=== PATIENT | male | born 1955 | race African-American/Black ===

== ENCOUNTER 2017-02-20 13:52 | Emergency (ER) | payer OTHER ==
[~2017-02-20] VITALS: Ht 180.3 cm; Wt 98.4 kg
[2017-02-20 14:15] VITALS: BP 168/94
[2017-02-20] MEDS ORDERED: HYDROmorphone 1 MG/ML AMP IVP ONE (15:20)
[2017-02-20 15:56] LABS: BASOPHILS # (AUTO) 0.3 K/uL (0.00-0.22); BASOPHILS % (AUTO) 4.5 % (0.0-2.0); EOSINOPHILS # (AUTO) 0.2 K/uL (0-0.4); EOSINOPHILS % (AUTO) 3.3 % (0.0-4.0); HEMATOCRIT 41.3 % (36-52); HEMOGLOBIN 13.5 g/dL (12.0-18.0); LYMPHOCYTES # (AUTO) 2.9 K/uL (2.0-11.5); LYMPHOCYTES % (AUTO) 39.9 % (20.5-51.1); MEAN CORPUSCULAR HEMOGLOBIN 30 pg (27-31); MEAN CORPUSCULAR HGB CONC 33 g/dL (33-37); MEAN CORPUSCULAR VOLUME 92 fL (80-94); MONOCYTES # (AUTO) 0.9 K/uL (0.8-1.0); MONOCYTES % (AUTO) 11.7 % (1.7-9.3); NEUTROPHILS # (AUTO) 3.1 K/uL (1.8-7.7); NEUTROPHILS % (AUTO) 40.6 % (42.2-75.2); PLATELET COUNT (AUTO) 268 K/uL (140-450); RED BLOOD CELL COUNT(AUTO) 4.51 MIL/uL (4.20-6.10); RED CELL DISTRIBUTION WIDTH 13.5 % (11.6-13.7); WHITE BLOOD COUNT (AUTO) 7.4 K/uL (4.8-10.8)
[2017-02-20 16:14] LABS: ALBUMIN 3.6 g/dL (3.4-5.0); ANION GAP 14.1 (8-16); CARBON DIOXIDE 25.5 mmol/L (21-32); CREATININE 1.1 mg/dL (0.7-1.3); POTASSIUM 3.6 mmol/L (3.5-5.1); TOTAL BILIRUBIN 0.4 mg/dL (0.0-1.0)
[2017-02-20] MEDS ORDERED: ONDANSETRON 4 MG/2 ML VIAL IVP ONE (16:25)
[2017-02-20 17:45] VITALS: BP 164/94
== END 2017-02-20 17:45 | disposition home or self-care (01) ==
LOC: MED 13:52
DX: K59.00 Constipation, unspecified (principal); R20.8 Other disturbances of skin sensation; E10.9 Type 1 diabetes mellitus without complications; I10 Essential (primary) hypertension
CPT/HCPCS: 36415; 74176; 80053; 82150; 83615; 83690; 85025; 96374; 96375; 99285; J1170; J2405

== ENCOUNTER 2019-09-18 09:09 | Emergency (ER) | payer OTHER ==
[~2019-09-18] VITALS: Ht 180.3 cm; Wt 98.4 kg
[2019-09-18 09:19] VITALS: BP 180/92
--- NOTE | 2019-09-18 09:20 | NUR ---
Patient ambulated to bed 7. RN evaluating the patient at bedside.
--- NOTE | 2019-09-18 09:25 | NUR ---
C/O L LEG PAIN X 7 DAYS, L EAR RINGING X2 WEEKS, AND REPETITVE L EYE BLINKING X YESTERDAY. +CMS TO L LEG. PT REPORTS NO VISION LOSS. DENIES CP, SOB, OR N/V/D. PT STATES HE IS TAKING EAR DROPS FOR HIS EAR RINGING, PRESCRIBED BY HIS PCP. PT REPORTS UNCONTROLLED DM, CURRENTLY NOT TAKING MEDICATIONS FOR DM. PT AMB WITH CANE. PT ALERT AND AWAKE, ORIENTED. TACHY AT 106. HR 180/92. PMH- HTN, DM RX- EAR DROPS, NAPROXEN, CYCLOBENZAPRINE
--- NOTE | 2019-09-18 09:29 | NUR ---
Dr. Martinez is evaluating the patient at bedside.
[2019-09-18] MEDS ORDERED: NACL 0.9% 1,000 ML IV ONE (09:35)
--- NOTE | 2019-09-18 09:35 | NUR ---
BS TOO HIGH TO READ, DR STEIN NOTIFIED
--- NOTE | 2019-09-18 09:48 | NUR ---
IV INSERTED BY ZABRINA CLARK, LABS DRAWN BEDSIDE, OPEN BOLUS RUNNING
--- NOTE | 2019-09-18 09:49 | NUR ---
US AT BEDSIDE
[2019-09-18 09:59] LABS: BASOPHILS # (AUTO) 0.1 K/uL (0.00-0.22); BASOPHILS % (AUTO) 1.2 % (0.0-2.0); EOSINOPHILS # (AUTO) 0.3 K/uL (0-0.4); EOSINOPHILS % (AUTO) 4.4 % (0.0-4.0); HEMATOCRIT 44.8 % (36-52); HEMOGLOBIN 14.8 g/dL (12.0-18.0); LYMPHOCYTES # (AUTO) 2.4 K/uL (2.0-11.5); LYMPHOCYTES % (AUTO) 31.5 % (20.5-51.1); MEAN CORPUSCULAR HEMOGLOBIN 30 pg (27-31); MEAN CORPUSCULAR HGB CONC 33 g/dL (33-37); MEAN CORPUSCULAR VOLUME 89.5 fL (80-94); MONOCYTES # (AUTO) 0.3 K/uL (0.8-1.0); MONOCYTES % (AUTO) 4.3 % (1.7-9.3); NEUTROPHILS # (AUTO) 4.4 K/uL (1.8-7.7); NEUTROPHILS % (AUTO) 58.6 % (42.2-75.2); PLATELET COUNT (AUTO) 238 K/uL (140-450); RED CELL DISTRIBUTION WIDTH 13.4 % (11.6-13.7); WHITE BLOOD COUNT (AUTO) 7.6 K/uL (4.8-10.8)
[2019-09-18 10:23] LABS: ANION GAP 16.8 (8-16); ASPARTATE AMINOTRANSFERASE 18 U/L (15-37); CARBON DIOXIDE 23.4 mmol/L (21-32); CHLORIDE 96 mmol/L (98-107); CREATININE 1.5 mg/dL (0.6-1.3); GFR ARICAN-AMERICAN 61 mL/min (>90); POTASSIUM 4.2 mmol/L (3.5-5.1); SODIUM SERUM 132 mmol/L (136-145); TOTAL BILIRUBIN 0.3 mg/dL (0.0-1.0); UREA NITROGEN, BLOOD 12 mg/dL (7-18)
--- NOTE | 2019-09-18 10:25 | NUR ---
BS 606, REPORTED BY LAB, DR STEIN NOTIFIED
--- NOTE | 2019-09-18 10:26 | NUR ---
IRRIGATION WITH NORMAL SALINE TO L EAR COMPLETED BY TRAY TORRES
[2019-09-18 10:27] LABS: GLUCOSE 606 mg/dL (74-106)
[2019-09-18 10:31] LABS: ACETONE, SERUM SMALL (NEGATIVE)
[2019-09-18] MEDS ORDERED: INSULIN REGULAR, HUMAN 100 UNIT/ML VIAL IVP ONE (10:35)
--- NOTE | 2019-09-18 10:48 | NUR ---
HUMILIN R ADMINISTERED IVP
--- NOTE | 2019-09-18 10:49 | NUR ---
PT STATES UNABLE TO USE RESTROOM, PT GIVEN CUP OF WATER
--- NOTE | 2019-09-18 11:02 | NUR ---
BS 408
--- NOTE | 2019-09-18 11:13 | NUR ---
PT AMB WITH CANE TO RESTROOM
--- NOTE | 2019-09-18 11:23 | NUR ---
URINE WALKED TO LAB
[2019-09-18 11:27] LABS: APPEARANCE,URINE CLEAR (CLEAR); BILIRUBIN,URINE NEGATIVE (NEGATIVE); BLOOD, URINE 1+ (NEGATIVE); COLOR,URINE RED (YELLOW); LEUKOCYTE ESTERASE ,URINE NEGATIVE (NEGATIVE); NITRITE, URINE NEGATIVE (NEGATIVE); PH,URINE 5.5 (5.0-9.0); UGLUCOSE 3+ (NEGATIVE)
[2019-09-18 11:54] LABS: WBC,URINE 0-5 /HPF (0-5)
[2019-09-18] MEDS ORDERED: KETOROLAC 15 MG/ML VIAL IVP ONE (11:55)
--- NOTE | 2019-09-18 11:55 | NUR ---
PT STATES PAIN 02/[address] STEIN NOTIFIED
--- NOTE | 2019-09-18 11:55 | NUR ---
ACCU CHECK 245
--- NOTE | 2019-09-18 12:06 | NUR ---
TORADOL IVP ADMINISTERED FOR 02/07 PAIN
--- NOTE | 2019-09-18 12:24 | NUR ---
ADELA, PAIN 11/07, PT NOTIFIED THAT HE WILL BE SENT HOME WITH A PRESCRIPTION FOR PAIN
[2019-09-18 12:26] VITALS: BP 152/84
--- NOTE | 2019-09-18 12:26 | NUR ---
Patient discharged with v/s stable. Written and verbal after care instructions given and explained. Patient alert, oriented and verbalized understanding of instructions. Ambulatory with steady gait. All questions addressed prior to discharge. ID band removed. Patient advised to follow up with PMD. Rx of METFORMIN, IBUPROFEN, NORCO, DEBROX EAR DROPS given. Patient educated on indication of medication including possible reaction and side effects. Opportunity to ask questions provided and answered. PTS BS CONTROLLED AT THIS TIME. PT NO LONGER HYPERTENSIVE. PT INSTRUCTED TO NOT DRIVE AFTER TAKING NORCO IT MAY CAUSE DROWSINESS.
== END 2019-09-18 12:26 | disposition home or self-care (01) ==
LOC: MED 09:09
DX: H92.02 Otalgia, left ear (principal); M79.605 Pain in left leg; E10.9 Type 1 diabetes mellitus without complications; I10 Essential (primary) hypertension
CPT/HCPCS: 36415; 80053; 81001; 82009; 82803; 82948; 85025; 93971; 96374; 96375; 99284; J1815; J1885; J7030; Q0092

== ENCOUNTER 2019-09-20 14:51 | Emergency (ER) | payer OTHER ==
[~2019-09-20] VITALS: Ht 180.3 cm; Wt 100.7 kg
[2019-09-20 14:56] VITALS: BP 165/107
--- NOTE | 2019-09-20 15:22 | NUR ---
Dr. Braun is evaluating the patient at bedside.
--- NOTE | 2019-09-20 15:30 | NUR ---
C/O L EYE TWITCHING AND SLURRED SPEECH STARTING THIS MORNING. PT STATES HE THINKS HE IS HAVING A REACTION TO HIS NEW MEDICATION, METFORMIN. PT IS A&O X4, BUE/BLE STRENGTH EQUAL. PT SPEECH CLEAR AND APPROPRIATE AT THIS TIME. L EYE HAS NOTICABLE TWITCHING. PT DENIES PAIN. BED IN LOW POSITION, SIDE RAIL UP X1. PT PLACED IN GOWN AND ON BEDSIDE VISITOR SERVICES ASSISTANT.
--- NOTE | 2019-09-20 15:41 | NUR ---
Patient returned from CT scan. RN re-evaluating patient at bedside.
[2019-09-20 16:11] LABS: BASOPHILS # (AUTO) 0.1 K/uL (0.00-0.22); BASOPHILS % (AUTO) 1.3 % (0.0-2.0); EOSINOPHILS # (AUTO) 0.3 K/uL (0-0.4); EOSINOPHILS % (AUTO) 4.3 % (0.0-4.0); HEMATOCRIT 41.4 % (36-52); HEMOGLOBIN 13.8 g/dL (12.0-18.0); LYMPHOCYTES # (AUTO) 2.5 K/uL (2.0-11.5); LYMPHOCYTES % (AUTO) 32.2 % (20.5-51.1); MEAN CORPUSCULAR HEMOGLOBIN 30 pg (27-31); MEAN CORPUSCULAR HGB CONC 33 g/dL (33-37); MEAN CORPUSCULAR VOLUME 88.4 fL (80-94); MONOCYTES # (AUTO) 0.5 K/uL (0.8-1.0); MONOCYTES % (AUTO) 6.2 % (1.7-9.3); NEUTROPHILS # (AUTO) 4.3 K/uL (1.8-7.7); PLATELET COUNT (AUTO) 212 K/uL (140-450); RED BLOOD CELL COUNT(AUTO) 4.68 MIL/uL (4.20-6.10); RED CELL DISTRIBUTION WIDTH 13.2 % (11.6-13.7); WHITE BLOOD COUNT (AUTO) 7.7 K/uL (4.8-10.8)
[2019-09-20 16:29] LABS: ALBUMIN 3.9 g/dL (3.4-5.0); ANION GAP 16.3 (8-16); CARBON DIOXIDE 23.1 mmol/L (21-32); CREATININE 1.6 mg/dL (0.6-1.3); POTASSIUM 4.4 mmol/L (3.5-5.1); TOTAL BILIRUBIN 0.4 mg/dL (0.0-1.0)
[2019-09-20] MEDS ORDERED: NACL 0.9% 1,000 ML IV ONE ×2 (16:35→17:30)
[2019-09-20] MEDS ORDERED: INSULIN REGULAR, HUMAN 100 UNIT/ML VIAL SUBQ ONE ×2 (16:35→17:30)
[2019-09-20 16:38] LABS: PROTHROMBIN TIME 9.4 secs (10.8-13.4)
--- NOTE | 2019-09-20 17:22 | NUR ---
Patient's BP 176/106 mmHg, Dr. Braun notified.
[2019-09-20] MEDS ORDERED: ENALAPRILAT 2.5 MG/2 ML VIAL IVP ONE (17:30)
--- NOTE | 2019-09-20 17:59 | NUR ---
Dr. Braun is re-evaluating the patient at bedside.
--- NOTE | 2019-09-20 18:49 | NUR ---
PT'S BG 326MG/DL, BP 172/[address] PRITCHARD NOTIFIED.
[2019-09-20] MEDS ORDERED: ASPIRIN 81 MG TAB.CHEW PO ONE (19:00)
[2019-09-20 19:09] VITALS: BP 169/93
--- NOTE | 2019-09-20 19:09 | NUR ---
Patient discharged with v/s stable. Written and verbal after care instructions given and explained. Patient alert, oriented and verbalized understanding of instructions. Ambulatory with steady gait. All questions addressed prior to discharge. ID band removed. Patient advised to follow up with PMD. Rx of Hydrochlorothiazide and Asprin given. IV removed without bleeding and covered by 4x4cm dressing. Patient educated on indication of medication including possible reaction and side effects. Opportunity to ask questions provided and answered.
== END 2019-09-20 19:09 | disposition home or self-care (01) ==
LOC: MED 14:51
DX: E10.65 Type 1 diabetes mellitus with hyperglycemia (principal); I10 Essential (primary) hypertension; F17.200 Nicotine dependence, unspecified, uncomplicated; Z98.890 Other specified postprocedural states
CPT/HCPCS: 36415; 70450; 71045; 80053; 81002; 82948; 84484; 85025; 85610; 85730; 93005; 96361; 96372; 96374; 99291; J1815; J3490; J7030; Q0092; 99285

== ENCOUNTER 2019-09-21 11:30 | Inpatient (IN) | payer OTHER ==
[~2019-09-21] VITALS: Ht 180.3 cm; Wt 99.8 kg
[2019-09-21 11:38] VITALS: BP 165/92
--- NOTE | 2019-09-21 11:47 | NUR ---
64 Y/O MALE FROM HOME C/O INCREASED BLOOD SUGAR AND MUSCLE TWITCHING TO LT EYE AND SIDE OF FACE THAT STARTED TODAY. PT STATES HE WAS SEEN YESTERDAY AT [facility] FOR HYPERTENSION. RR EVEN AND UNLABORED, NO ACCESSORY MUSCLE USE. HOB ELEVATED. PT POSITIONED FOR COMFORT. VSS MEDHX: DM, HTN
--- NOTE | 2019-09-21 11:58 | NUR ---
DR ANTHONY EXAMINING PT
[2019-09-21] MEDS ORDERED: NACL 0.9% 1,000 ML IV ONE (12:05)
[2019-09-21] MEDS ORDERED: INSULIN REGULAR, HUMAN 100 UNIT/ML VIAL SUBQ ONE (12:10)
[2019-09-21 12:42] LABS: BASOPHILS # (AUTO) 0.1 K/uL (0.00-0.22); BASOPHILS % (AUTO) 1.7 % (0.0-2.0); EOSINOPHILS # (AUTO) 0.3 K/uL (0-0.4); EOSINOPHILS % (AUTO) 5.1 % (0.0-4.0); HEMATOCRIT 35.6 % (36-52); HEMOGLOBIN 11.9 g/dL (12.0-18.0); LYMPHOCYTES # (AUTO) 2.5 K/uL (2.0-11.5); LYMPHOCYTES % (AUTO) 36.8 % (20.5-51.1); MEAN CORPUSCULAR HEMOGLOBIN 30 pg (27-31); MEAN CORPUSCULAR HGB CONC 33 g/dL (33-37); MEAN CORPUSCULAR VOLUME 88.9 fL (80-94); MONOCYTES # (AUTO) 0.4 K/uL (0.8-1.0); MONOCYTES % (AUTO) 5.9 % (1.7-9.3); NEUTROPHILS # (AUTO) 3.4 K/uL (1.8-7.7); NEUTROPHILS % (AUTO) 50.5 % (42.2-75.2); PLATELET COUNT (AUTO) 177 K/uL (140-450); RED BLOOD CELL COUNT(AUTO) 4.01 MIL/uL (4.20-6.10); RED CELL DISTRIBUTION WIDTH 13.4 % (11.6-13.7); WHITE BLOOD COUNT (AUTO) 6.7 K/uL (4.8-10.8)
--- NOTE | 2019-09-21 13:21 | NUR ---
PT RESTING IN BED EYES CLOSED, VISIBLE RISE AND FALL OF THE CHEST. HOB ELEVATED POSITIONED FOR COMFORT. X 1 SIDE RAIL RAISED. VSS
[2019-09-21 13:23] LABS: ALBUMIN 3.1 g/dL (3.4-5.0); ANION GAP 16.6 (8-16); CARBON DIOXIDE 21.8 mmol/L (21-32); CREATININE 1.5 mg/dL (0.6-1.3); POTASSIUM 4.4 mmol/L (3.5-5.1); TOTAL BILIRUBIN 0.4 mg/dL (0.0-1.0)
[2019-09-21] MEDS ORDERED: ACETAMINOPHEN 325 MG TAB PO PRN (14:20)
[2019-09-21] MEDS ORDERED: DEXTROSE 50% 50 ML SYR IVP PRN (14:20)
[2019-09-21] MEDS ORDERED: INSULIN LISPRO SLIDING SCALE 100 UNITS/ML VIAL SUBQ PRN (14:20)
[2019-09-21] MEDS ORDERED: ONDANSETRON 4 MG/2 ML VIAL IVP PRN (14:20)
[2019-09-21] MEDS ORDERED: HYDROcodone/APAP 5/325 MG 1 TAB TAB PO PRN (14:20)
[2019-09-21 14:35] LABS: FREE T4 (FREE THYROXINE) 1.23 ng/dL (0.76-1.46); THYROID STIMULATING HORMONE 0.73 uIU/mL (0.34-3.74)
[2019-09-21 14:38] LABS: APPEARANCE,URINE SL CLOUDY (CLEAR); BILIRUBIN,URINE NEGATIVE (NEGATIVE); BLOOD, URINE NEGATIVE (NEGATIVE); COLOR,URINE YELLOW (YELLOW); LEUKOCYTE ESTERASE ,URINE NEGATIVE (NEGATIVE); NITRITE, URINE NEGATIVE (NEGATIVE); UGLUCOSE 3+ (NEGATIVE)
[2019-09-21] MEDS: NACL 0.9% 1,000 ML IV SCH (14:44)
[2019-09-21 14:47] LABS: BARBITURATE, URINE NEGATIVE ng/ml (NEG <=200); BENZODIAZEPINE, URINE NEGATIVE ng/mL (NEG <=200); CANNABINOID, URINE NEGATIVE ng/mL (NEG <=50); COCAINE, URINE NEGATIVE ng/mL (NEG <=300); OPIATE, URINE NEGATIVE ng/mL (NEG <=2000); PHENCYCLIDINE SCREEN,URINE NEGATIVE ng/mL (NEG <=25)
[2019-09-21] MEDS: INSULIN LANTUS 100 UNITS/ML 10 ML VIAL SUBQ SCH ×3 (14:49→21:00)
--- NOTE | 2019-09-21 14:51 | NUR ---
DENIES PAIN AT THIS TIME. STATES HE HAS LESS "TWITCHING" TO THE LT SIDE OF HIS FACE. VSS. WILL CONTINUE TO MONITOR
--- NOTE | 2019-09-21 15:36 | NUR ---
ULTRASOUND AT BEDSIDE
--- NOTE | 2019-09-21 16:21 | NUR ---
PT RESTING WITH EYES CLOSED, DENIES PAIN. VSS. WILL CONTINUE TO MONITOR
[2019-09-21] MEDS: BLOOD GLUCOSE MONITORING 1 DEV DEV FS SCH ×2 (16:36→20:45)
--- NOTE | 2019-09-21 17:20 | NUR ---
Pt admitted to room 111B from ED via gurney. Pt able to ambulate to bed with steady gait. Medical hx obtained from pt who is aaox4 and speaks Hungarian fluently. No signs of distress at this time, respirations even & nonlabored in room. Right forearm IV 20G intact with ongoing NS @ 80ml/h. Pt oriented to room and unit, able to return demonstrate teachings. Call light within reach.
--- NOTE | 2019-09-21 17:27 | NUR ---
Patient will be admitted to care of DR DE LA O. Admited to TELE. Will go to room 111B. Belongings list completed. Report to EDUARDO RADER.
[2019-09-21 17:30] VITALS: BP 168/98
[2019-09-21 18:30] VITALS: BP 151/98
--- NOTE | 2019-09-21 18:30 | NUR ---
Med reconciliation discussed with patient. Pt unable to recall name of his meds. States he will call his son to get list of meds.
--- NOTE | 2019-09-21 19:28 | NUR ---
RECEIVED BEDSIDE SHIFT REPORT FROM AM NURSE FOR CONTINUITY OF CARE. PT AWAKE IN BED NO SIGNS OF DISTRESS NOTED. RESPIRATIONS EVEN AND UNLABORED ON RA. TELE MONITOR ATTACHED IV SITE PATENT, CALL LIGHT WITHIN REACH
[2019-09-21 20:00] VITALS: BP 144/95
--- NOTE | 2019-09-21 20:45 | NUR ---
ADMINISTERED 2100 MEDICATIONS FOR PATIENT. PT REFUSED HS SCHEDULED LANTUS. PT BS WAS 148. PT EDUCATED ON REFUSAL. PT IN STABLE CONDITION WILL CONTINUE TO MONITOR
--- NOTE | 2019-09-21 23:40 | NUR ---
ROUNDING. PT AWAKE IN BED WATCHING TV. NO SIGNS OF DISTRESS NOTED. ALL MONITORS ATTACHED AND CALL LIGHT WITHIN REACH
[2019-09-22] VITALS: BP 151/100
--- NOTE | 2019-09-22 02:20 | NUR ---
ROUNDING. PT AWAKE IN BED WATCHING TV. NO SIGNS OF DISTRESS NOTED. MONITORS ATTACHED CALL LIGHT WITHIN REACH
[2019-09-22 04:00] VITALS: BP 153/93
[2019-09-22] MEDS: NACL 0.9% 1,000 ML IV SCH ×2 (04:11→15:17)
--- NOTE | 2019-09-22 04:30 | NUR ---
OBTAINED 0400 VITALS. PT ASLEEP. EASILY AWOKEN. NO SIGNS OF DISTRESS NOTED. ALL MONITORS ATTACHED AND CALL LIGHT WITHIN REACH
--- NOTE | 2019-09-22 05:35 | NUR ---
OBTAINED BEDSIDE BS CHECK. NO COVERAGE REQQUIRED
[2019-09-22] MEDS: BLOOD GLUCOSE MONITORING 1 DEV DEV FS SCH ×3 (06:16→16:55)
[2019-09-22 06:33] LABS: BASOPHILS # (AUTO) 0.1 K/uL (0.00-0.22); BASOPHILS % (AUTO) 1.3 % (0.0-2.0); EOSINOPHILS # (AUTO) 0.4 K/uL (0-0.4); EOSINOPHILS % (AUTO) 5.9 % (0.0-4.0); HEMATOCRIT 40.3 % (36-52); HEMOGLOBIN 13.4 g/dL (12.0-18.0); LYMPHOCYTES % (AUTO) 39.9 % (20.5-51.1); MEAN CORPUSCULAR HEMOGLOBIN 29 pg (27-31); MEAN CORPUSCULAR HGB CONC 33 g/dL (33-37); MEAN CORPUSCULAR VOLUME 87.7 fL (80-94); MONOCYTES # (AUTO) 0.5 K/uL (0.8-1.0); MONOCYTES % (AUTO) 6.5 % (1.7-9.3); NEUTROPHILS # (AUTO) 3.5 K/uL (1.8-7.7); NEUTROPHILS % (AUTO) 46.4 % (42.2-75.2); PLATELET COUNT (AUTO) 207 K/uL (140-450); RED CELL DISTRIBUTION WIDTH 13.2 % (11.6-13.7); WHITE BLOOD COUNT (AUTO) 7.5 K/uL (4.8-10.8)
--- NOTE | 2019-09-22 07:05 | NUR ---
ENDORSED PATIENT TO DAYSHIFT NURSE. PT IN STABLE CONDITION NO SIGNS OF DISTRESS NOTED. MONITOR ATTACHED AND CALL LIGHT WITHIN REACH
--- NOTE | 2019-09-22 07:05 | NUR ---
RECEIVED REPORT FROM NIGHT NURSE FOR CONTINUITY OF CARE, PT IS AAOX4, PT STABLE, RESPIRATION ARE EVEN AND UNLABORED ON ROOM AIR, PT HAS RIGHT FA 20G INFUSING NS AT 80ML/H, SKIN INTACT, PT ON CCHO DIET, INTRODUCE SELF, UPDATED WHITE BOARD, BED IN LOW POSITION, SAFETY MEASURES IN PLACE, CALL LIGHT WITHIN REACH. WILL CONTINUE TO MONITOR.
[2019-09-22 08:00] VITALS: BP 128/89
--- NOTE | 2019-09-22 08:27 | NUR ---
CALLED [facility] [phone] AT [address] [place] [address]. SPOKE WITH PHARMACY AND OBTAIN THE FOLLOWING RX FOR PT. PT ON METFORMIN 500 BID, ASPIRIN 81 DAILY, IBUPROFEN 600 1 TAB 4 TIMES A DAY, NORCO 5 1 TAB Q6H. HCTZ 25MG IN AM/DAILY. VERIFIED WITH PT AND HE ACKNOWLEDGE THIS MEDICATION HIS MEDICATION.
[2019-09-22] MEDS ORDERED: DOCUSATE SODIUM 100 MG GELCAP PO SCH (09:00)
[2019-09-22] MEDS: INSULIN LANTUS 100 UNITS/ML 10 ML VIAL SUBQ SCH (09:05)
--- NOTE | 2019-09-22 09:07 | NUR ---
PATIENT HAS BEEN SCREENED AND CATEGORIZED MODERATE NUTRITION RISK. PATIENT WILL BE SEEN WITHIN 3-5 DAYS OF ADMISSION. 09/24/19 09/26/[address]
--- NOTE | 2019-09-22 09:10 | NUR ---
ADMINISTERED SCHEDULED MEDICATION, MEDICATION EDUCATION GIVEN, PT VERBALIZED UNDERSTANDING, PT TOLERATED WELL, PT IS STABLE, CALL LIGHT WITHIN REACH.
--- NOTE | 2019-09-22 11:00 | NUR ---
PT RESTING IN BED, PT STABLE, NO SIGNS OF DISTRESS NOTED, CALL LIGHT WITHIN REACH.
[2019-09-22 11:14] LABS: ANION GAP 13.9 (8-16); CARBON DIOXIDE 25.1 mmol/L (21-32); CREATININE 1.1 mg/dL (0.6-1.3)
--- NOTE | 2019-09-22 11:40 | NUR ---
DC PLANNIN YRS OLD MALE PATIENT WAS ADMITTED FROM HOME WITH A DX OF HYPEROSMOLAR SYNDROME ,BLOOD GLUCOSE 603 ON ADMISSION . PT HAS A HX OF DM, AND HYPERTENSION. CXR NORMAL, EKG NSR, CT HEAD (-). ADMINISTERED REGULAR INSULIN BLOOD GLUCOSE 139 , CONTINUE HOME MEDS. DC PLAN TO GO HOME WHEN STABLE CM TO FOLLOW.
--- NOTE | 2019-09-22 11:41 | NUR ---
Linux System Engineer Note: Basic Screen: Yes High Risk DC Screen [place]: N/A Pre-Admission Living Arrangements: Lives Alone Other: [place] Prior ADL Independent Current Home Health Name/Tel: N/A Current DME/02 Name/Tel: [facility] Current Hospice Name/Tel: N/A Current Dialysis Name/Tel: N/A Healthcare Decision Maker: Patient Advance Directive No Physician Orders for Life Sustaining Treatment Form No Patient/Family Have Educational Needs No Discipline: Case Mgt/Social Svcs Tentative Discharge Plan/Destination: No Needs Identified Will require assistance post discharge: No Referred to Continuous Towel Roller: No Tentative Discharge Plan Summary: Patient is a 62-year-old male admitted for hyperosmolar syndrome. Patient has PMHX of hypertension and diabetes. Patient was admitted from home where he lives in a trailer. SW spoke with patient telephonically to verify demographics. Per patient, patient is independent with all ADLs and requires no assistance. Patient reports no history of substance abuse and mental health history. Tentative discharge is for patient to return home. No further needs identified. Signature: TA Marte Date: Sep 22, 2019 Time: 11:36
[2019-09-22 12:00] VITALS: BP 151/101
--- NOTE | 2019-09-22 13:00 | NUR ---
PT RESTING IN BED, NO SIGNS OF DISTRESS NOTED, CALL LIGHT WITHIN REACH.
[2019-09-22] MEDS ORDERED: GLIP5TER PO (15:08)
[2019-09-22] MEDS ORDERED: METF500T PO (15:08)
[2019-09-22] MEDS ORDERED: LANTUS SUBQ (15:08)
[2019-09-22] MEDS ORDERED: HYDROCHLOROTHIAZIDE 25 MG TAB PO SCH (15:30)
--- NOTE | 2019-09-22 15:34 | NUR ---
ADMINISTERED SCHEDULED MEDICATION, MEDICATION EDUCATION GIVEN, PT VERBALIZED UNDERSTANDING, PT TOLERATED WELL, PT IS STABLE, CALL LIGHT WITHIN REACH.
[2019-09-22 16:00] VITALS: BP 162/96
[2019-09-22] MEDS ORDERED: hydrALAZINE 25 MG TAB PO SCH (16:45)
--- NOTE | 2019-09-22 17:06 | NUR ---
ADMINISTERED ORDERED MEDICATION FOR HIGH BLOOD PRESSURE. PT EDUCATION GIVEN, PT VERBALIZED UNDERSTANDING, PT STABLE, CALL LIGHT WITHIN REACH.
--- NOTE | 2019-09-22 17:20 | NUR ---
DISCHARGED PT,PER DR DE LA O GIVE MEDICATION AND DISCHARGE PT. REMOVED IV, DISCHARGED EDUCATION GIVEN, PT VERBALIZED UNDERSTANDING, PT STABLE, PT WALKED TO LOBBY WITH STEADY GAIT USING HIS CANE.
[2019-09-23] MEDS ORDERED: HYDROCHLOROTHIAZIDE 25 MG TAB PO SCH (09:00)
== END 2019-09-22 17:20 | disposition home or self-care (01) | DRG 420 ==
LOC: MED 11:30 → MTU 16:59
PROVIDERS: ADMIT Hospitalist; ATTEND Hospitalist
DX: E11.00 Type 2 diabetes mellitus with hyperosmolarity without nonketotic hyperglycemic-hyperosmolar coma (NKHHC) (principal); N17.0 Acute kidney failure with tubular necrosis; G93.41 Metabolic encephalopathy; E11.22 Type 2 diabetes mellitus with diabetic chronic kidney disease; N18.3 Chronic kidney disease, stage 3 (moderate); R65.10 Systemic inflammatory response syndrome (SIRS) of non-infectious origin without acute organ dysfunction; E11.65 Type 2 diabetes mellitus with hyperglycemia; T48.205A Adverse effect of unspecified drugs acting on muscles, initial encounter; E66.3 Overweight; I12.9 Hypertensive chronic kidney disease with stage 1 through stage 4 chronic kidney disease, or unspecified chronic kidney disease; R25.3 Fasciculation; Z79.899 Other long term (current) drug therapy; Z91.14 Patient's other noncompliance with medication regimen; Y92.89 Other specified places as the place of occurrence of the external cause; Z68.30 Body mass index [BMI] 30.0-30.9, adult
CPT/HCPCS: 36415; 70450; 71045; 76770; 80048; 80053; 80305; 81003; 82948; 83036; 84439; 84443; 84484; 85025; 87081; 93005; 96360; 96361; 96372; 99285; J1644; J1815; J7030; Q0092

== ENCOUNTER 2019-09-26 11:13 | Inpatient (IN) | payer OTHER ==
[~2019-09-26] VITALS: Ht 180.3 cm; Wt 122.9 kg
[~2019-09-26 11:13] MED LIST: GLIP5TER PO; LANTUS SUBQ; METF500T PO
--- NOTE | 2019-09-26 11:19 | NUR ---
Patient ambulated to bed 2. RN evaluating patient at bedside.
[2019-09-26 11:25] VITALS: BP 163/94
--- NOTE | 2019-09-26 11:34 | NUR ---
64 Y/O MALE FROM HOME C/O LT EYE MUSCLE TWITCHING LASTING 8 DAYS. PT WAS SEEN AT [facility] 5 DAYS AGO FOR SAME COMPLAINT. NOTICABLE INTERMITTENT TWITCHING TO LT EYE. STATES HE HAS BEEN HAVING SLURRED SPEECH SINCE TWITCHING BEGAN. RR EVEN AND UNLABORED. PT PLACED ON PRESENTATION MANAGER, O2 SAT MONITOR, AND BLOOD PRESSURE CUFF PLACED ON PT. DENIES PAIN. MEDHX: DM, HTN ALLERGIES: NKA
[2019-09-26] MEDS ORDERED: NACL 0.9% 2,000 ML IV ONE (11:35)
--- NOTE | 2019-09-26 11:43 | NUR ---
Dr. Dawn is evaluating the patient at bedside.
--- NOTE | 2019-09-26 11:50 | NUR ---
20G IV PLACED TO LT AC, LABS DRAWN AT THIS TIME. PT GIVEN URINAL FOR COLLECTION OF URINE. WILL FOLLOW UP.
[2019-09-26 12:11] LABS: BASOPHILS # (AUTO) 0.1 K/uL (0.00-0.22); BASOPHILS % (AUTO) 1.2 % (0.0-2.0); EOSINOPHILS # (AUTO) 0.3 K/uL (0-0.4); EOSINOPHILS % (AUTO) 3.4 % (0.0-4.0); HEMATOCRIT 44.8 % (36-52); HEMOGLOBIN 14.8 g/dL (12.0-18.0); LYMPHOCYTES # (AUTO) 3.1 K/uL (2.0-11.5); LYMPHOCYTES % (AUTO) 36.9 % (20.5-51.1); MEAN CORPUSCULAR HEMOGLOBIN 29 pg (27-31); MEAN CORPUSCULAR HGB CONC 33 g/dL (33-37); MEAN CORPUSCULAR VOLUME 88.5 fL (80-94); MONOCYTES # (AUTO) 0.4 K/uL (0.8-1.0); NEUTROPHILS # (AUTO) 4.5 K/uL (1.8-7.7); NEUTROPHILS % (AUTO) 53.5 % (42.2-75.2); PLATELET COUNT (AUTO) 289 K/uL (140-450); RED BLOOD CELL COUNT(AUTO) 5.06 MIL/uL (4.20-6.10); WHITE BLOOD COUNT (AUTO) 8.4 K/uL (4.8-10.8)
[2019-09-26 12:22] LABS: ACETONE, SERUM NEGATIVE (NEGATIVE)
[2019-09-26 12:32] LABS: ALBUMIN 3.9 g/dL (3.4-5.0); ANION GAP 17.5 (8-16); ASPARTATE AMINOTRANSFERASE 19 U/L (15-37); CARBON DIOXIDE 23.2 mmol/L (21-32); CHLORIDE 94 mmol/L (98-107); GFR ARICAN-AMERICAN 44 mL/min (>90); LIPASE 311 U/L (73-393); POTASSIUM 4.7 mmol/L (3.5-5.1); SODIUM SERUM 130 mmol/L (136-145); TOTAL BILIRUBIN 0.4 mg/dL (0.0-1.0); UREA NITROGEN, BLOOD 23 mg/dL (7-18)
[2019-09-26 12:36] LABS: GLUCOSE 690 mg/dL (74-106)
--- NOTE | 2019-09-26 12:42 | NUR ---
URINE COLLECTED FROM PT AT THIS TIME
[2019-09-26] MEDS ORDERED: INSULIN REGULAR, HUMAN 100 UNIT/ML VIAL SUBQ ONE (13:05)
[2019-09-26] MEDS ORDERED: DEXTROSE 50% 50 ML SYR IVP PRN (13:35)
--- NOTE | 2019-09-26 13:52 | NUR ---
Dr. De La Fuente is evaluating the patient at bedside.
--- NOTE | 2019-09-26 14:02 | NUR ---
PT RESTING IN BED WITH TOWEL PLACED TO LT EYE. STATES EYE REMAINS TWITCHING AT THIS TIME. WILL CONTINUE TO MONITOR. VSS
[2019-09-26 14:09] LABS: APPEARANCE,URINE CLEAR (CLEAR); BILIRUBIN,URINE NEGATIVE (NEGATIVE); BLOOD, URINE TRACE-I (NEGATIVE); COLOR,URINE YELLOW (YELLOW); LEUKOCYTE ESTERASE ,URINE NEGATIVE (NEGATIVE); NITRITE, URINE NEGATIVE (NEGATIVE); PH,URINE 5.5 (5.0-9.0); UGLUCOSE 3+ (NEGATIVE)
[2019-09-26] MEDS ORDERED: ORE25 PO (14:26)
[2019-09-26] MEDS ORDERED: ASPI-1822 PO (14:26)
--- NOTE | 2019-09-26 14:27 | NUR ---
Patient will be admitted to care of DR ORTA. Admited to [facility]. Will go to room 106A. Belongings list completed. Report to EDUARDO HIDALGO.
[2019-09-26 14:30] VITALS: BP 143/94
--- NOTE | 2019-09-26 14:30 | NUR ---
PATIENT ARRIVED VIA WHEELCHAIR FROM ED UNIT. REPORT GIVEN BY ED NURSE. PATIENT IS ALERT AND ORIENTED X4. INTRODUCED SELF AND TO ROOM. PLANS OF CARE DISCUSSED. IV INTACT AND PATENT TO LEFT AC. VS STABLE. CALL LIGHT WITHIN REACH. SAFETY MEASURES IN PLACE. WILL CONTINUE TO MONITOR.
--- NOTE | 2019-09-26 14:45 | NUR ---
VS STABLE. INITIAL ASSESSMENT DONE AND SKIN ASSESSMENT DONE. SKIN INTACT.
[2019-09-26] MEDS: NACL 0.9% 1,000 ML IV SCH ×2 (15:00→21:33)
[2019-09-26] MEDS: BLOOD GLUCOSE MONITORING 1 DEV DEV FS SCH ×2 (17:33→20:49)
--- NOTE | 2019-09-26 17:35 | NUR ---
BG 312. COVERAGE HUMALOG 10 UNITS GIVEN ORDERED. PATIENT IS AAOX4. NO DISTRESS NOTED.
[2019-09-26] MEDS: INSULIN LISPRO SLIDING SCALE 100 UNITS/ML VIAL SUBQ PRN ×2 (17:39→20:53)
--- NOTE | 2019-09-26 18:45 | NUR ---
PATIENT REMAINS IN STABLE CONDITION. WILL ENDORSE TO NIGHT NURSE FOR CONTINUITY OF CARE.
--- NOTE | 2019-09-26 19:10 | NUR ---
RECEIVED PATIENT FROM AM NURSE, MARIAJOSE. PATIENT IS ALERT AND ORIENTED X4. AMBULATORY, STEADY GAIT. WITH IV ON THE L AC G 20, NS RUNNING AT ORDERED RATE. POC REVIEWED. CALL LIGHT WITHIN REACH. SAFETY MEASURES IN PLACE. WILL CONTINUE TO MONITOR.
[2019-09-26] MEDS: INSULIN LANTUS 100 UNITS/ML 10 ML VIAL SUBQ SCH (21:29)
[2019-09-26] MEDS: levETIRAcetam 500 MG in NACL 0.9% 100 ML IV SCH (21:31)
--- NOTE | 2019-09-26 22:45 | NUR ---
PT SAID HE IS HUNGRY, GIVEN HIM SNACK FOR DIABETIC CCHO 60 DIET
--- NOTE | 2019-09-26 23:45 | NUR ---
PATIENT TRYING TO SLEEP, NO COMPLAINTS AT THIS TIME.
[2019-09-27] VITALS: BP 129/89
--- NOTE | 2019-09-27 03:13 | NUR ---
PATIENT SLEEPING, FIXED PT'S IVF BECAUSE PT KEEPS ON MOVING. NO RESPIRATORY DISTRESS NO SOB. NO COMPLAINTS OF PAIN.
[2019-09-27] MEDS: NACL 0.9% 1,000 ML IV SCH ×2 (04:48→14:07)
[2019-09-27] MEDS: BLOOD GLUCOSE MONITORING 1 DEV DEV FS SCH ×3 (05:23→16:10)
[2019-09-27] MEDS: INSULIN LISPRO SLIDING SCALE 100 UNITS/ML VIAL SUBQ PRN ×2 (05:46→11:26)
[2019-09-27 06:55] LABS: BASOPHILS # (AUTO) 0.1 K/uL (0.00-0.22); BASOPHILS % (AUTO) 0.7 % (0.0-2.0); EOSINOPHILS # (AUTO) 0.4 K/uL (0-0.4); EOSINOPHILS % (AUTO) 4.4 % (0.0-4.0); HEMOGLOBIN 13.2 g/dL (12.0-18.0); LYMPHOCYTES # (AUTO) 4.3 K/uL (2.0-11.5); LYMPHOCYTES % (AUTO) 46.6 % (20.5-51.1); MEAN CORPUSCULAR HEMOGLOBIN 29 pg (27-31); MEAN CORPUSCULAR HGB CONC 33 g/dL (33-37); MEAN CORPUSCULAR VOLUME 88.7 fL (80-94); MONOCYTES # (AUTO) 0.6 K/uL (0.8-1.0); MONOCYTES % (AUTO) 5.9 % (1.7-9.3); NEUTROPHILS % (AUTO) 42.4 % (42.2-75.2); PLATELET COUNT (AUTO) 259 K/uL (140-450); RED BLOOD CELL COUNT(AUTO) 4.51 MIL/uL (4.20-6.10); RED CELL DISTRIBUTION WIDTH 13.3 % (11.6-13.7); WHITE BLOOD COUNT (AUTO) 9.3 K/uL (4.8-10.8)
--- NOTE | 2019-09-27 07:05 | NUR ---
RECEIVED REPORT FRO NIGHT NURSE PT IS ON ROOM AIR. PT IS STABLE WILL CONTINUE TO MONITOR.
[2019-09-27 07:46] LABS: ALBUMIN 3.3 g/dL (3.4-5.0); ANION GAP 13.7 (8-16); CARBON DIOXIDE 24.3 mmol/L (21-32); CREATININE 1.3 mg/dL (0.6-1.3); MAGNESIUM 1.7 mg/dL (1.8-2.4); TOTAL BILIRUBIN 0.4 mg/dL (0.0-1.0)
[2019-09-27 08:00] VITALS: BP 157/85
--- NOTE | 2019-09-27 08:56 | NUR ---
PATIENT HAS BEEN SCREENED AND CATEGORIZED MODERATE NUTRITION RISK. PATIENT WILL BE SEEN WITHIN 3-5 DAYS OF ADMISSION. 09/29/19 10/01/[address]
--- NOTE | 2019-09-27 09:00 | NUR ---
MEDICATIONS DUE GIVEN CHECK BLOOD GLUCOSE PRIOR TO MEDICATION. BLOOD GLUCOSE 179MG/DL. NO DISTRESS NOTED WILL CONTINUE TO MONITOR.
[2019-09-27] MEDS: levETIRAcetam 500 MG in NACL 0.9% 100 ML IV SCH (09:15)
[2019-09-27] MEDS: INSULIN LANTUS 100 UNITS/ML 10 ML VIAL SUBQ SCH (09:20)
--- NOTE | 2019-09-27 10:42 | NUR ---
Manager Telemarketing Note: Basic Screen: Yes High Risk DC Screen [place]: MELVIN Jane Relationship: DAUGHTER Pre-Admission Living Arrangements: Lives Alone Prior ADL Independent Current Home Health Name/Tel: N/A Current DME/02 Name/Tel: N/A Current Hospice Name/Tel: N/A Current Dialysis Name/Tel: N/A Healthcare Decision Maker: Patient Advance Directive No Physician Orders for Life Sustaining Treatment Form No Patient/Family Have Educational Needs No Discipline: Case Mgt/Social Svcs Tentative Discharge Plan/Destination: No Needs Identified Will require assistance post discharge: No Referred to Insurance Advisor: No Tentative Discharge Plan Summary: Patient is a 64-year-old male admitted for diabetes mellitis uncontrolled. Patient has PMHX of hypertension and diabetes. Patient was admitted from home where he lives in a trailer. Patient was recently admitted on 09/22/2019. SW spoke with patient telephonically to verify demographics. Per patient, patient is independent with all ADLs and requires no assistance. Patient reports no history of substance abuse and mental health history. Tentative discharge is for patient to return home. No further needs identified. Signature: TA Marte Date: Sep 27, 2019 Time: 10:41
--- NOTE | 2019-09-27 11:30 | NUR ---
BLOOD SUGAR MONITORING AT THIS TIME AND 174 GAVE 4 UNITS OF INSULIN. DENIES PAIN. WILL CONTINUE TO MONITOR.
--- NOTE | 2019-09-27 12:07 | NUR ---
DISCHARGE PLANNING: THIS IS A 64 Y/O MALE PATIENT FROM HOME, WHO CAME IN DUE TO LEFT EYE, FACIAL TWITCHING AND OCCASIONAL SLURRED SPEECH. PAST MEDICAL HISTORY INCLUDE HTN AND DIABETES. INITIAL DIAGNOSIS OF UNCONTROLLED DM AND RED. CURRENT LABS INCLUDE WBC 9.3, H/H 13.2/40.0, NA/K 138/4.0, BUN/CREA 18/1.3, ALB 3.3, TRIGLYCERIDES 194. ON KEPPRA IV. NEURO CONSULT WITH DR. WALSH IN PLACE-NOT SEEN YET. DC PLAN BACK TO HOME ONCE STABLE.
--- NOTE | 2019-09-27 16:00 | NUR ---
MEDICATIONS DUE GIVEN AND CHECK BLOOD SUGAR PT IS STABLE.
[2019-09-27] MEDS ORDERED: METF1000 PO ×3 (17:03→17:13)
--- NOTE | 2019-09-27 18:38 | NUR ---
DISCHARGED INSTRUCTION PROVIDED TO PT AT BEDSIDE. EDUCATED PT TO FOLLOW UP WITH PCP AFTER 7 DAYS OF DISCHARGE.EDUCATED PT ON MEDICATION REGIMENS, SIDE EFFECTS AND TO SEEK MEDICAL HELP IN CASE OF MEDICAL EMERGENCY. ANSWERS ALL PT QUESTIONS AND PT VERBALIZES UNDERSTANDING. REMOVED ALL ID BANDS AND IV INTACT AND COMPLETED. NO BLEEDING ON IV SITES. PT IS CHANGED INTO HIS OWN CLOTHES.D/C PACKET PROVIDED. ESCORTED PT TO FRONT LOBBY. PT IS GOING TO HOME.PT IS STABLE.
--- NOTE | 2019-09-27 19:15 | NUR ---
PT IS DISCHARGE TO HOME.AND STABLE.
--- NOTE | 2019-09-28 14:56 | NUR ---
PCP Appointment: MARGARITO contacred Tawanna from Dr. Rosa Elena Vieira's office [phone] to arrange hospital follow up for patient. MARGARITO arranged telemedicine appointment for 09/29/2019 @ 1050. Tawanna stated that she would contact patient. No further needs identified.
== END 2019-09-27 18:38 | disposition home or self-care (01) | DRG 48 ==
LOC: MED 11:13 → MTU 13:42
PROVIDERS: ADMIT Internal Medicine; ATTEND Internal Medicine
DX: G51.32 Clonic hemifacial spasm, left (principal); E11.00 Type 2 diabetes mellitus with hyperosmolarity without nonketotic hyperglycemic-hyperosmolar coma (NKHHC); N17.9 Acute kidney failure, unspecified; E11.65 Type 2 diabetes mellitus with hyperglycemia; E87.1 Hypo-osmolality and hyponatremia; I10 Essential (primary) hypertension; F17.210 Nicotine dependence, cigarettes, uncomplicated; Z91.14 Patient's other noncompliance with medication regimen; Z79.4 Long term (current) use of insulin; Z79.84 Long term (current) use of oral hypoglycemic drugs; Z79.82 Long term (current) use of aspirin; Z79.899 Other long term (current) drug therapy
CPT/HCPCS: 36415; 80053; 81003; 82009; 82550; 82948; 83036; 83690; 83735; 84484; 84703; 85025; 87081; 93005; 96360; 96361; 96372; 99285; J1815; J1953; J7030

== ENCOUNTER 2019-10-20 14:09 | Emergency (ER) | payer OTHER ==
[~2019-10-20] VITALS: Ht 185.4 cm; Wt 93.0 kg
[~2019-10-20 14:09] MED LIST changes: +ASPI-1822 PO; +METF1000 PO; -METF500T PO
--- NOTE | 2019-10-20 14:13 | NUR ---
PT AMBULATED TO BED 5.
[2019-10-20 14:21] VITALS: BP 151/107
--- NOTE | 2019-10-20 14:25 | NUR ---
ACCOMPANIED BY DAUGHTER ABDIAS C/O HIGH BS 417 CURRENTLY IN TRIAGE AND FATIGUE. ADDS LEFT EYELID, FACIAL, AND NECK TWITCHING X 3-4 WEEKS. PER FAMILY, TWITCHING IS INTERMITTENT AND VARIES IN LENGTH. TWITCHING WILL STOP ON ITS OWN PER PT AND RANDOM TIMES. CURRENTLY DENIES HEADACHE, NO FACIAL ASYMMETRY NOTED, FULL CLEAR SPEECH AT THIS TIME WITH EQUAL PICK UP AND DELIVERY DRIVER, AND AMBULATORY WITH STEADY GAIT. ADMITTED TWICE THIS PAST AUGUST FOR SIMILAR S/S HX--DM, HTN, HYPERLIPIDEMIA, KIDNEY STONES
[2019-10-20] MEDS ORDERED: ORE25 PO (14:29)
[2019-10-20] MEDS ORDERED: METF500T PO (14:29)
[2019-10-20] MEDS ORDERED: NACL 0.9% 1,000 ML IV ONE (14:30)
--- NOTE | 2019-10-20 14:30 | NUR ---
IV INSERTED AND LABS DRAWN BEDSIDE
--- NOTE | 2019-10-20 14:45 | NUR ---
PT UNABLE TO PROVIDE URINE
[2019-10-20] MEDS ORDERED: LORazepam 2 MG/ML VIAL IVP ONE (14:50)
--- NOTE | 2019-10-20 15:00 | NUR ---
PT TAKEN TO CT VIA WHEELCHAIR
[2019-10-20 15:15] LABS: BASOPHILS # (AUTO) 0.1 K/uL (0.00-0.22); EOSINOPHILS # (AUTO) 0.3 K/uL (0-0.4); EOSINOPHILS % (AUTO) 3.1 % (0.0-4.0); HEMATOCRIT 38.7 % (36-52); HEMOGLOBIN 12.9 g/dL (12.0-18.0); LYMPHOCYTES # (AUTO) 3.8 K/uL (2.0-11.5); LYMPHOCYTES % (AUTO) 43.3 % (20.5-51.1); MEAN CORPUSCULAR HEMOGLOBIN 29 pg (27-31); MEAN CORPUSCULAR HGB CONC 33 g/dL (33-37); MEAN CORPUSCULAR VOLUME 87.9 fL (80-94); MONOCYTES # (AUTO) 0.4 K/uL (0.8-1.0); NEUTROPHILS # (AUTO) 4.2 K/uL (1.8-7.7); NEUTROPHILS % (AUTO) 47.6 % (42.2-75.2); PLATELET COUNT (AUTO) 249 K/uL (140-450); RED CELL DISTRIBUTION WIDTH 13.1 % (11.6-13.7); WHITE BLOOD COUNT (AUTO) 8.8 K/uL (4.8-10.8)
--- NOTE | 2019-10-20 15:15 | NUR ---
ATIVAN IVP ADMINISTERED
[2019-10-20 15:26] LABS: ANION GAP 14.3 (8-16); CREATININE 1.7 mg/dL (0.6-1.3); POTASSIUM 4.3 mmol/L (3.5-5.1); TOTAL BILIRUBIN 0.4 mg/dL (0.0-1.0)
--- NOTE | 2019-10-20 15:32 | NUR ---
BS 334
--- NOTE | 2019-10-20 15:33 | NUR ---
DR CAM INFORMED OF PTS CURRENT BS Addendum: 10/20/19 at 1533 by [email or web address] DEACON CAM
--- NOTE | 2019-10-20 15:35 | NUR ---
NADR, PAIN 0/10. PT NO LONGER HAS TWICHING APPARENT TO L SIDE OF FACE
--- NOTE | 2019-10-20 15:43 | NUR ---
PT CONINUES TO FALL ASLEEP. REMINDED PT TO PROVIDE URINE SAMPLE
--- NOTE | 2019-10-20 15:57 | NUR ---
URINE WALKED TO LAB
[2019-10-20 15:59] LABS: APPEARANCE,URINE CLEAR (CLEAR); BILIRUBIN,URINE NEGATIVE (NEGATIVE); BLOOD, URINE 1+ (NEGATIVE); COLOR,URINE YELLOW (YELLOW); LEUKOCYTE ESTERASE ,URINE NEGATIVE (NEGATIVE); NITRITE, URINE NEGATIVE (NEGATIVE); UGLUCOSE 3+ (NEGATIVE)
[2019-10-20] MEDS ORDERED: INSULIN REGULAR, HUMAN 100 UNIT/ML VIAL IVP ONE (16:00)
[2019-10-20 16:09] LABS: RBC,URINE 0-5 /HPF (0-5); WBC,URINE 0-5 /HPF (0-5)
--- NOTE | 2019-10-20 16:22 | NUR ---
DEACON CAM RE-EVALUATING
--- NOTE | 2019-10-20 16:37 | NUR ---
SPOKE WITH ABDIAS, PTS DAUGHTER IN REGARDS TO PTS STATUS WITH CONSENT FROM PT
--- NOTE | 2019-10-20 17:07 | NUR ---
BS 275
--- NOTE | 2019-10-20 17:23 | NUR ---
PT PASSES ROAD TEST
[2019-10-20 18:00] VITALS: BP 134/81
--- NOTE | 2019-10-20 18:00 | NUR ---
Patient discharged with v/s stable. Written and verbal after care instructions given and explained. Patient alert, oriented and verbalized understanding of instructions. Ambulatory with steady gait. All questions addressed prior to discharge. ID band removed. Patient advised to follow up with PMD. Rx of ATIVAN given. Patient educated on indication of medication including possible reaction and side effects. Opportunity to ask questions provided and answered. INSTRUCTED TO TAKE AT BEDSIDE INSTRUCTED TO FOLLOW UP WITH PCP INREGARDS TO STARTING INSULIN PT WALKED TO SISTER IN [facility]
== END 2019-10-20 18:00 | disposition home or self-care (01) ==
LOC: MED 14:09
DX: E11.65 Type 2 diabetes mellitus with hyperglycemia (principal); F17.210 Nicotine dependence, cigarettes, uncomplicated; G51.39 Clonic hemifacial spasm, unspecified; I10 Essential (primary) hypertension; Z79.899 Other long term (current) drug therapy; Z79.4 Long term (current) use of insulin
CPT/HCPCS: 36415; 70450; 80053; 81001; 83690; 85025; 93005; 96374; 96375; 99285; J1815; J2060; J7030; 99284

== ENCOUNTER 2019-10-22 13:51 | Emergency (ER) | payer OTHER ==
[~2019-10-22] VITALS: Ht 180.3 cm; Wt 98.0 kg
[~2019-10-22 13:51] MED LIST changes: -METF1000 PO; +METF500T PO; +ORE25 PO
[2019-10-22 13:56] VITALS: BP 129/91
[2019-10-22] MEDS ORDERED: NACL 0.9% 1,000 ML IV ONE (14:35)
[2019-10-22 15:06] LABS: BASOPHILS # (AUTO) 0.1 K/uL (0.00-0.22); BASOPHILS % (AUTO) 1.1 % (0.0-2.0); EOSINOPHILS # (AUTO) 0.2 K/uL (0-0.4); EOSINOPHILS % (AUTO) 2.6 % (0.0-4.0); HEMATOCRIT 36.2 % (36-52); HEMOGLOBIN 12.3 g/dL (12.0-18.0); LYMPHOCYTES % (AUTO) 43.5 % (20.5-51.1); MEAN CORPUSCULAR HEMOGLOBIN 30 pg (27-31); MEAN CORPUSCULAR HGB CONC 34 g/dL (33-37); MEAN CORPUSCULAR VOLUME 86.9 fL (80-94); MONOCYTES # (AUTO) 0.4 K/uL (0.8-1.0); MONOCYTES % (AUTO) 4.5 % (1.7-9.3); NEUTROPHILS # (AUTO) 4.4 K/uL (1.8-7.7); NEUTROPHILS % (AUTO) 48.3 % (42.2-75.2); PLATELET COUNT (AUTO) 224 K/uL (140-450); RED BLOOD CELL COUNT(AUTO) 4.16 MIL/uL (4.20-6.10); WHITE BLOOD COUNT (AUTO) 9.1 K/uL (4.8-10.8)
[2019-10-22] MEDS ORDERED: LORazepam 2 MG/ML VIAL IVP ONE (15:15)
[2019-10-22 15:21] LABS: ANION GAP 14.5 (8-16); CARBON DIOXIDE 26.4 mmol/L (21-32); CREATININE 1.5 mg/dL (0.6-1.3); POTASSIUM 3.9 mmol/L (3.5-5.1)
[2019-10-22 15:26] LABS: PROTHROMBIN TIME 9.9 secs (10.8-13.4)
[2019-10-22 15:27] LABS: ALBUMIN 3.2 g/dL (3.4-5.0); TOTAL BILIRUBIN 0.3 mg/dL (0.0-1.0)
[2019-10-22 16:25] LABS: APPEARANCE,URINE CLEAR (CLEAR); BILIRUBIN,URINE NEGATIVE (NEGATIVE); BLOOD, URINE TRACE-L (NEGATIVE); COLOR,URINE YELLOW (YELLOW); LEUKOCYTE ESTERASE ,URINE NEGATIVE (NEGATIVE); NITRITE, URINE NEGATIVE (NEGATIVE); UGLUCOSE 2+ (NEGATIVE)
[2019-10-22] MEDS ORDERED: METF1000 PO (16:27)
[2019-10-22 19:30] VITALS: BP 144/92
== END 2019-10-22 19:30 | disposition short-term general hospital (02) ==
LOC: MED 13:51
DX: G45.9 Transient cerebral ischemic attack, unspecified (principal); E11.9 Type 2 diabetes mellitus without complications; F17.210 Nicotine dependence, cigarettes, uncomplicated; I10 Essential (primary) hypertension; R25.2 Cramp and spasm; Z79.84 Long term (current) use of oral hypoglycemic drugs; Z79.899 Other long term (current) drug therapy; Z86.73 Personal history of transient ischemic attack (TIA), and cerebral infarction without residual deficits
CPT/HCPCS: 36415; 70450; 71045; 80053; 81003; 83880; 84484; 85025; 85610; 85730; 93005; 96361; 96374; 99285; J2060; J7030; Q0092